=== PATIENT | female | born 1965 | race Caucasian/White ===

== ENCOUNTER 2021-04-04 21:28 | Emergency (ER) | payer OTHER ==
[~2021-04-04] VITALS: Ht 165.1 cm; Wt 70.3 kg
[2021-04-04] MEDS ORDERED: FAMOTIDINE 20 MG/2 ML VIAL IV STA (21:41)
[2021-04-04 22:29] LABS: BASOPHILS # (AUTO) 0.1 (0.0-0.1); BASOPHILS % 0.5 % (0.0-1.0); EOSINOPHILS % 0.3 % (0.0-6.0); HEMATOCRIT 39.3 % (34.2-44.1); HEMOGLOBIN 13.5 g/dL (12.0-16.0); LYMPHOCYTES # (AUTO) 2.9 (1.0-3.2); LYMPHOCYTES % 21.9 % (18.0-39.1); MEAN CORPUSCULAR HEMOGLOBIN 31.3 pg (28-32); MEAN CORPUSCULAR HGB CONC 34.4 g/dL (31-35); MONOCYTES % 7.7 % (4.4-11.3); NEUTROPHILS % 67.7 % (38.7-80.0); PLATELET COUNT 241 x10e3/uL (140-360); RED BLOOD COUNT 4.32 x10e6/uL (3.6-5.1); RED CELL DISTRIBUTION WIDTH 12.2 % (11.7-14.4)
[2021-04-04 22:50] LABS: SALICYLATE < 5.0 mg/dL (0-30)
[2021-04-04 22:59] LABS: ALBUMIN 3.7 g/dL (3.5-5.0); ALBUMIN/GLOBULIN RATIO 0.9 (0.8-2.0); CREATININE, SERUM 0.71 mg/dL (0.57-1.11)
[2021-04-04 23:05] LABS: CREATINE KINASE MB 1.2 ng/mL (0-5.0)
[2021-04-04] MEDS ORDERED: IOPAMIDOL 370 MG/ML 200 ML INFUS..BTL INJ ONE (23:22)
[2021-04-04] MEDS ORDERED: SODIUM CHLORIDE 0.9% 50ML 50 ML ONE (23:22)
[2021-04-05 01:15] LABS: AMPHETAMINES SCREEN,URINE NEGATIVE (NEGATIVE); BENZODIAZEPINES SCREEN,URINE NEGATIVE (NEGATIVE); CLARITY,URINE CLEAR (CLEAR); COLOR,URINE YELLOW (YELLOW); KETONES,URINE NEGATIVE (NEGATIVE); LEUKOCYTE ESTERASE ,URINE NEGATIVE (NEGATIVE); NITRITE,URINE NEGATIVE (NEGATIVE); PHENCYCLIDINE SCREEN,URINE NEGATIVE (NEGATIVE); PROTEIN,URINE DIPSTICK NEGATIVE (NEGATIVE); URINE UROBILINOGEN 0.2 mg/dL (0.2 - 1)
[2021-04-05 01:22] LABS: BACTERIA,URINE FEW /HPF; EPITHELIAL CELLS,URINE MODERATE /LPF; RBC,URINE 0-5 /HPF (0-5); WBC,URINE (MAN) 0-5 /HPF (0-5)
== END 2021-04-05 19:39 | disposition home or self-care (01) ==
LOC: ER 21:38
DX: R10.13 Epigastric pain (principal); K80.80 Other cholelithiasis without obstruction; R45.851 Suicidal ideations; F32.A Depression, unspecified; I10 Essential (primary) hypertension; E11.9 Type 2 diabetes mellitus without complications; K74.60 Unspecified cirrhosis of liver; R16.1 Splenomegaly, not elsewhere classified; K57.30 Diverticulosis of large intestine without perforation or abscess without bleeding; R19.09 Other intra-abdominal and pelvic swelling, mass and lump; Z20.822 Contact with and (suspected) exposure to COVID-19
CPT/HCPCS: 36415; 74177; 76705; 80053; 80307; 80320; 80329 ×2; 81001; 82550; 82553; 83690; 84484; 85025; 93005; 99285; Q9967; U0002